=== PATIENT | female | born 1985 | race Caucasian/White ===

== ENCOUNTER 2018-08-14 18:36 | Emergency (ER) | payer SELFPAY ==
[~2018-08-14] VITALS: Ht 167.6 cm; Wt 54.9 kg
[2018-08-14 18:45] VITALS: BP 133/84
--- NOTE | 2018-08-14 18:56 | NUR ---
PATIENT AMBULATED TO BED # 8 WITH BOYFRIEND
--- NOTE | 2018-08-14 19:19 | NUR ---
PT TO ED WITH C/O LACERATION TO RT FOREHEAD S/P FALL TODAY ONTO PAVEMENT. PT REPORTS CONSUMPTION OF ETOH. OBVIOUS ODOR OF ETOH NOTED. LACERATION TO RT FOREHEAD NOTED. BLEEDING CONTROLLED. SMALL HEMATOMA NOTED TO RT FOREHEAD. PT ALERT TO NAME, BIRTHDAY, AND PLACE. PT PLACED INTO BED, PENDING MD FERRELL. PMH--DENIES NKDA
--- NOTE | 2018-08-14 21:25 | NUR ---
Patient being evaluated by physician at bedside.
--- NOTE | 2018-08-14 21:41 | NUR ---
CLEANED PT'S WOUND LOCATED ON RIGHT SIDE OF HER FOREHEAD.
[2018-08-14 22:21] VITALS: BP 128/79
== END 2018-08-14 22:21 | disposition home or self-care (01) ==
LOC: MED 18:36
DX: S01.81XA Laceration without foreign body of other part of head, initial encounter (principal); S70.211A Abrasion, right hip, initial encounter; F10.129 Alcohol abuse with intoxication, unspecified; W19.XXXA Unspecified fall, initial encounter; Y93.89 Activity, other specified; Y92.89 Other specified places as the place of occurrence of the external cause; Y99.8 Other external cause status
CPT/HCPCS: 70450; 70486; 72125; 81002; 81025; 90471; 90715; 99284